=== PATIENT | female | born 1970 ===

== ENCOUNTER 2019-05-17 22:24 | Emergency (ER) | payer OTHER ==
[2019-05-17] MEDS ORDERED: Ondansetron ODT 4 MG TAB ONE (22:54)
== END 2019-05-17 23:08 | disposition home or self-care (01) ==
LOC: BURERS 22:24
DX: B34.9 Viral infection, unspecified (principal); F41.9 Anxiety disorder, unspecified; I47.1 Supraventricular tachycardia; Z79.899 Other long term (current) drug therapy
CPT/HCPCS: 87804; 99283; Q0162